=== PATIENT | male | born 1975 | race African-American/Black ===

== ENCOUNTER 2018-02-08 15:05 | Emergency (ER) | payer OTHER ==
[~2018-02-08] VITALS: Ht 175.3 cm; Wt 116.6 kg
--- NOTE | ~2018-02-08 | EKG ---
[address] [address] [place] [address] ELECTROCARDIOGRAM REPORT Name: KULDEEP WIGGINS Room #: [facility] [place]#: [id number] Admission: 02/08/18 Attend Phys: Discharge: 02/08/18 Date of : 75 Report #: [id number] THIS REPORT FOR: //name// [facility] ED Test Date: 2018-02-08 Test Time: 15:31:41 Pat Name: KULDEEP WIGGINS Department: Room: Gender: Claims Technician: analia : 1975 Requested By: Sona Hernandez Order Number: [id number] MD: Bon Soni Measurements Intervals Williams Rate: 75 P: 61 WI: 196 QRS: 33 QRSD: 91 T: 35 QT: 373 QTc: 417 Interpretive Statements Sinus rhythm ST elev, probable normal early repol pattern No previous ECG available for comparison Electronically Signed On 02-09-2018 8:20:34 CDT by Bon Soni [email or web address] <ELECTRONICALLY SIGNED> By: Bon Soni MD, [facility] 02/09/18 0820 1531 1531 Bon Soni MD, FACC /EPI
[2018-02-08 15:17] VITALS: BP 124/78
[2018-02-08 16:22] LABS: ABSOLUTE NEUTROPHILS 3.5 thou/uL (1.4-8.2); BASOPHILS 0.7 % (0.0-2.0); EOSINOPHILS 5.3 % (0.0-3.0); HEMATOCRIT 44.8 % (42.0-52.0); HEMOGLOBIN 15.2 gm/dL (14.0-18.0); LYMPHOCYTES 37.9 % (24.0-44.0); MCH 28.9 pg (26.0-34.0); MCHC 33.9 g/dL (28.0-37.0); MCV 85.3 fL (80.0-100.0); MONOCYTES 8.1 % (1.0-8.0); PLATELET COUNT 148 thou/uL (150-400); RBC 5.25 mil/uL (4.50-6.00); RDW 13.3 % (10.5-14.5); WBC 7.2 thou/uL (4.0-11.0)
[2018-02-08 16:33] LABS: ANION GAP 8 mmol/L (7-16); BUN 8 mg/dL (7-18); CALCIUM 9.6 mg/dL (8.5-10.1); CHLORIDE 102 mmol/L (98-107); CO2 27 mmol/L (21-32); CREATININE 0.9 mg/dL (0.7-1.3); GLUCOSE 104 mg/dL (74-106); POTASSIUM 3.8 mmol/L (3.5-5.1); SODIUM 137 mmol/L (136-145)
[2018-02-08 16:43] LABS: TROPONIN-I < 0.04 ng/mL (<0.06)
[2018-02-08] MEDS ORDERED: NORFLEX100 MG PO (16:57)
[2018-02-08] MEDS ORDERED: NAPROSYN500 MG PO (16:57)
== END 2018-02-08 17:07 | disposition home or self-care (01) ==
LOC: ER 15:05
PROVIDERS: Physician Assistant
DX: M25.512 Pain in left shoulder (principal); E11.9 Type 2 diabetes mellitus without complications